=== PATIENT | female | born 1955 | race Caucasian/White ===

== ENCOUNTER 2022-06-28 17:41 | Inpatient (IN) | payer MEDICARE ==
[~2022-06-28] VITALS: Ht 165.1 cm; Wt 113.6 kg
[2022-06-28 19:47] LABS: BASOPHILS % (AUTO) 0.1 % (0-1); EOSINOPHILS # (AUTO) 0.1 X10'3 (0-0.9); EOSINOPHILS % (AUTO) 0.5 % (0-6); HEMATOCRIT 30.7 % (35.0-45.0); HEMOGLOBIN 10.3 g/dl (12.0-16.0); LYMPHOCYTES # (AUTO) 1.8 X10'3 (1.1-4.8); LYMPHOCYTES % (AUTO) 11.1 % (21-51); MEAN CORPUSCULAR HGB CONC 33.5 g/dL (33.0-36.5); MEAN CORPUSCULAR VOLUME 80.6 FL (78-98); MEAN PLATELET VOLUME 8.6 FL (7.4-10.4); MONOCYTES # (AUTO) 1.6 X10'3 (0-0.9); MONOCYTES % (AUTO) 9.6 % (2-12); NEUTROPHILS # (AUTO) 12.8 X10'3 (1.8-7.7); NEUTROPHILS % (AUTO) 78.7 % (42-75); PLATELET COUNT 445 X10'3 (140-440); RED CELL DISTRIBUTION WIDTH 28.5 % (11.5-14.5); WHITE BLOOD COUNT 16.3 X10'3 (4.5-11.0)
[2022-06-28 20:15] LABS: COLOR,URINE ORANGE (Yellow); UA COLLECTION TYPE STRAIGHT CATH
[2022-06-28 20:16] LABS: CLARITY,URINE SLIGHTLY CLOUDY (Clear)
[2022-06-28 20:17] LABS: URINE AMPHETAMINE SCREEN NEGATIVE (Neg); URINE BARBITUATE SCREEN NEGATIVE (Neg); URINE BENZODIAZEPINES SCREEN POSITIVE (Neg); URINE CANNABINOID SCREEN NEGATIVE (Neg); URINE COCAINE SCREEN NEGATIVE (Neg); URINE METHADONE SCREEN NEGATIVE (Neg); URINE OPIATE SCREEN NEGATIVE (Neg); URINE PHENCYCLIDINE SCREEN NEGATIVE (Neg)
[2022-06-28 20:18] LABS: BACTERIA,URINE 2+ /HPF (Neg); RBC,URINE NONE SEEN /HPF (0-2); SQUAMOUS EPITHELIAL CELL,UR MANY /LPF (FEW); WBC,URINE 0-4 /HPF (0-4)
[2022-06-28 20:19] LABS: ALANINE AMINOTRANSFERASE 17 U/L (12-78); ALBUMIN 2.5 G/DL (3.4-5.0); ALKALINE PHOSPHATASE 373 IU/L (46-116); ANION GAP 13 (8-16); BLOOD UREA NITROGEN 28 MG/DL (7-18); BUN/CREATININE RATIO 16.8 (6.6-38.0); CALCIUM 10.5 MG/DL (8.5-10.1); CHLORIDE 99 MMOL/L (99-107); CREATININE 1.67 MG/DL (0.40-0.90); LIPASE 66 U/L (73-393); SODIUM 137 MMOL/L (135-145); TOTAL CARBON DIOXIDE 25.5 MMOL/L (24-32); eGFR 31 ML/MIN
[2022-06-28 20:21] LABS: ETHANOL < 0.010 GM/DL (0.0-0.010)
[2022-06-28 20:30] LABS: ANISOCYTOSIS 3+; PLATELET ESTIMATE INCREASED; POIKILOCYTOSIS 2+
[2022-06-28 20:31] LABS: HYPOCHROMASIA 3+; POLYCHROMASIA 1+; SCHISTOCYTES 1+; TARGET CELLS 3+
[2022-06-28 20:35] LABS: ALBUMIN/GLOBULIN RATIO 0.6 (1.1-1.5); BILIRUBIN,DIRECT 22.7 MG/DL (0-0.3); BILIRUBIN,TOTAL 32.6 MG/DL (0.1-1.0); GLUCOSE 92 MG/DL (70-104); POTASSIUM 3.1 MMOL/L (3.5-5.1); TOTAL PROTEIN 6.6 G/DL (6.4-8.2)
[2022-06-28 20:38] LABS: ASPARTATE AMINO TRANSFERASE 67 U/L (10-37)
[2022-06-28] MEDS ORDERED: piperacillin/tazo 3.375gm/50ml 50 ML IV STA (21:08)
[2022-06-28] MEDS ORDERED: potassium Cl 20 mEq SR tablet PO ONE (21:10)
[2022-06-29] MEDS ORDERED: magnesium Cl slow-release 64mg tablet PO PRN (00:25)
[2022-06-29] MEDS ORDERED: diphenhydrAMINE 25mg capsule PO PRN (00:25)
[2022-06-29] MEDS ORDERED: haloperidol 5mg tablet PO PRN (00:25)
[2022-06-29] MEDS ORDERED: ondansetron/PF 4mg/2ml inj IV PRN (00:25)
[2022-06-29] MEDS ORDERED: magnesium hydroxide 30ml (MOM) UD suspension PO PRN (00:25)
[2022-06-29] MEDS ORDERED: LORazepam 2 mg/ml vial IV PRN (00:25)
[2022-06-29] MEDS ORDERED: haloperidol lactate 5mg/ml inj IM PRN (00:25)
[2022-06-29] MEDS ORDERED: HYDROcodone/acetaminophen 5mg/325mg tablet PO PRN (00:25)
[2022-06-29] MEDS ORDERED: potassium CL 10mEq/100ml bag 100 ML IV PRN (00:25)
[2022-06-29] MEDS ORDERED: bisacodyl 10mg suppository rectal RC PRN (00:25)
[2022-06-29] MEDS ORDERED: mag hydrox/Alum hydrox/simeth 30ml oral suspension PO PRN (00:25)
[2022-06-29] MEDS ORDERED: POTASSIUM BICARB 20meq eff tab 20 MEQ TABLET.EFF PO PRN (00:25)
[2022-06-29] MEDS ORDERED: ondansetron 4mg rapidly disintigrating tab PO PRN (00:25)
[2022-06-29] MEDS ORDERED: LORazepam 1 MG tablet PO PRN (00:25)
[2022-06-29] MEDS ORDERED: magnesium 2GM in 50ml NS 50 ML IV PRN (00:25)
[2022-06-29] MEDS ORDERED: HYDROcodone/acetaminophen 10/325mg tab PO PRN (00:25)
[2022-06-29] MEDS ORDERED: magnesium 4gm in 100ml NS 100 ML IV PRN (00:25)
[2022-06-29] MEDS ORDERED: diphenhydrAMINE 50 mg/ml inj IV PRN (00:25)
[2022-06-29] MEDS ORDERED: acetaminophen 650mg rectal suppository RC PRN (00:25)
[2022-06-29] MEDS ORDERED: acetaminophen 325mg tablet PO PRN ×2 (00:25)
[2022-06-29] MEDS: normal saline 1000ml 1,000 ML IV SCH ×4 (00:46→20:41)
[2022-06-29 00:55] LABS: HEMOGLOBIN A1C 4.3 % (4.5-6.2)
[2022-06-29 01:11] LABS: CREATINE KINASE 28 U/L (26-192); MAGNESIUM 1.7 MG/DL (1.5-2.4); PHOSPHORUS 2.8 MG/DL (2.3-4.5)
[2022-06-29] MEDS ORDERED: HYDROcodone/acetaminophen 10/325mg tab PO ONE (01:25)
[2022-06-29] MEDS ORDERED: NO HOME MEDS (03:26)
--- NOTE | 2022-06-29 04:51 | NUR ---
Pt is in room asleep.
[2022-06-29 07:59] LABS: APTT 32 SECONDS (22-32); RED BLOOD COUNT 3.45 X10'6 (4.20-5.60); RETICULOCYTE % (AUTO) 2.7 % (0.5-1.5)
[2022-06-29] MEDS: K and/or MAG REPLACEMENT MC SCH ×2 (08:00→20:00)
[2022-06-29] MEDS: docusate sod 100mg capsule PO SCH ×2 (08:00→20:00)
[2022-06-29] MEDS: pantoprazole 40MG/NS 100ML BAG 100 ML IV SCH (08:40)
[2022-06-29] MEDS: thiamine 100mg/ml 2ml inj. IV SCH ×3 (08:47→20:45)
[2022-06-29] MEDS: piperacillin/tazo 4.5gm/100ml 100 ML IV SCH (09:54)
[2022-06-29] MEDS: folic acid 1mg/0.2ml inj IV SCH (10:15)
[2022-06-29] MEDS: POTASSIUM BICARB 20meq eff tab 20 MEQ TABLET.EFF PO PRN ×3 (11:28→20:54)
[2022-06-29] MEDS: morphine 2 MG/ML inj. syringe IV PRN ×3 (11:48→20:52)
--- NOTE | 2022-06-29 14:04 | NUR ---
Report given to SHAVONNE Larkin on PCU
[2022-06-29 15:00] VITALS: BP 120/62
[2022-06-29 18:00] VITALS: BP 115/66
--- NOTE | 2022-06-29 18:59 | NUR ---
Problems reprioritized. Patient report given, questions answered & plan of care reviewed with Hyacinth Claros RN.
--- NOTE | 2022-06-29 19:00 | NUR ---
Patient in room PCU 3027. I have received report from KATELYNN MARVIN and had the opportunity to ask questions and assume patient care.
[2022-06-29] MEDS ORDERED: temazepam 15mg capsule PO PRN (21:00)
[2022-06-29 22:00] VITALS: BP 122/65
[2022-06-30 02:00] VITALS: BP_SYST 122; BP_SYST 128; BP_DIAS 65; BP_DIAS 72
[2022-06-30 06:00] VITALS: BP 117/66
--- NOTE | 2022-06-30 06:28 | NUR ---
Problems reprioritized. Patient report given, questions answered & plan of care reviewed with TIMBO MARVIN.
--- NOTE | 2022-06-30 06:30 | NUR ---
Patient in room PCU 3027. I have received report from SHAVONNE Lamas and had the opportunity to ask questions and assume patient care.
[2022-06-30 06:49] LABS: BASOPHILS # (AUTO) 0.1 X10'3 (0-0.2); BASOPHILS % (AUTO) 0.4 % (0-1); EOSINOPHILS # (AUTO) 0.1 X10'3 (0-0.9); EOSINOPHILS % (AUTO) 0.9 % (0-6); HEMATOCRIT 26.2 % (35.0-45.0); HEMOGLOBIN 8.8 g/dl (12.0-16.0); LYMPHOCYTES # (AUTO) 0.8 X10'3 (1.1-4.8); LYMPHOCYTES % (AUTO) 6.3 % (21-51); MEAN CORPUSCULAR HEMOGLOBIN 27.6 PG (27.0-31.0); MEAN CORPUSCULAR HGB CONC 33.6 g/dL (33.0-36.5); MEAN CORPUSCULAR VOLUME 81.9 FL (78-98); MEAN PLATELET VOLUME 7.8 FL (7.4-10.4); MONOCYTES # (AUTO) 1.3 X10'3 (0-0.9); MONOCYTES % (AUTO) 10.2 % (2-12); NEUTROPHILS # (AUTO) 10.6 X10'3 (1.8-7.7); NEUTROPHILS % (AUTO) 82.2 % (42-75); PLATELET COUNT 313 X10'3 (140-440); RED CELL DISTRIBUTION WIDTH 28.1 % (11.5-14.5); WHITE BLOOD COUNT 12.9 X10'3 (4.5-11.0)
[2022-06-30 07:32] LABS: ALANINE AMINOTRANSFERASE 14 U/L (12-78); ALBUMIN 2.1 G/DL (3.4-5.0); ALKALINE PHOSPHATASE 314 IU/L (46-116); ANION GAP 14 (8-16); BLOOD UREA NITROGEN 33 MG/DL (7-18); CALCIUM 9.2 MG/DL (8.5-10.1); CHLORIDE 101 MMOL/L (99-107); HDL CHOLESTEROL 10 MG/DL (35-60); LDL CHOLESTEROL 30 MG/DL (50-100); SODIUM 137 MMOL/L (135-145); TOTAL CARBON DIOXIDE 22.4 MMOL/L (24-32)
[2022-06-30 07:35] LABS: ALBUMIN/GLOBULIN RATIO 0.6 (1.1-1.5); ASPARTATE AMINO TRANSFERASE 67 U/L (10-37); BILIRUBIN,TOTAL 29.5 MG/DL (0.1-1.0); BUN/CREATININE RATIO 14.2 (6.6-38.0); CHOLESTEROL < 50 MG/DL (0-200); CREATININE 2.32 MG/DL (0.40-0.90); GLUCOSE 105 MG/DL (70-104); TOTAL PROTEIN 5.6 G/DL (6.4-8.2); TRIGLYCERIDES 161 MG/DL (20-135); eGFR 21 ML/MIN
[2022-06-30] MEDS: K and/or MAG REPLACEMENT MC SCH ×2 (08:00→20:00)
[2022-06-30] MEDS: normal saline 1000ml 1,000 ML IV SCH ×2 (08:32→19:25)
[2022-06-30] MEDS: piperacillin/tazo 4.5gm/100ml 100 ML IV SCH (08:32)
[2022-06-30] MEDS: thiamine 100mg/ml 2ml inj. IV SCH ×3 (08:34→20:24)
[2022-06-30] MEDS: pantoprazole 40MG/NS 100ML BAG 100 ML IV SCH (08:37)
[2022-06-30] MEDS: docusate sod 100mg capsule PO SCH ×2 (08:37→20:24)
[2022-06-30] MEDS: folic acid 1mg/0.2ml inj IV SCH (10:58)
[2022-06-30] MEDS: morphine 2 MG/ML inj. syringe IV PRN ×2 (12:50→17:01)
--- NOTE | 2022-06-30 18:23 | NUR ---
Problems reprioritized. Patient report given, questions answered & plan of care reviewed with SHAVONNE Juarez.
[2022-06-30 19:15] VITALS: BP 121/91
[2022-07-01] MEDS: normal saline 1000ml 1,000 ML IV SCH (06:00)
--- NOTE | 2022-07-01 06:53 | NUR ---
Patient in room PCU 3027. I have received report from Anam MARVIN and had the opportunity to ask questions and assume patient care.
--- NOTE | 2022-07-01 06:55 | NUR ---
Problems reprioritized. Patient report given, questions answered & plan of care reviewed with GENEVIEVE. Addendum: 07/01/22 at 0656 by Art Jacobson RN Amended: Links added.
[2022-07-01 07:00] VITALS: BP 121/61
[2022-07-01] MEDS: thiamine 100mg/ml 2ml inj. IV SCH (07:57)
[2022-07-01] MEDS: docusate sod 100mg capsule PO SCH (07:57)
[2022-07-01] MEDS: pantoprazole 40MG/NS 100ML BAG 100 ML IV SCH (07:57)
[2022-07-01] MEDS: K and/or MAG REPLACEMENT MC SCH (08:00)
[2022-07-01 08:20] LABS: BASOPHILS % (AUTO) 0.3 % (0-1); EOSINOPHILS # (AUTO) 0.1 X10'3 (0-0.9); EOSINOPHILS % (AUTO) 0.9 % (0-6); HEMATOCRIT 26.5 % (35.0-45.0); HEMOGLOBIN 8.8 g/dl (12.0-16.0); LYMPHOCYTES # (AUTO) 0.7 X10'3 (1.1-4.8); LYMPHOCYTES % (AUTO) 5.4 % (21-51); MEAN CORPUSCULAR HEMOGLOBIN 27.2 PG (27.0-31.0); MEAN CORPUSCULAR HGB CONC 33.1 g/dL (33.0-36.5); MEAN CORPUSCULAR VOLUME 82.3 FL (78-98); MEAN PLATELET VOLUME 8.3 FL (7.4-10.4); MONOCYTES # (AUTO) 1.1 X10'3 (0-0.9); MONOCYTES % (AUTO) 8.2 % (2-12); NEUTROPHILS # (AUTO) 11.3 X10'3 (1.8-7.7); NEUTROPHILS % (AUTO) 85.2 % (42-75); PLATELET COUNT 288 X10'3 (140-440); RED BLOOD COUNT 3.22 X10'6 (4.20-5.60); RED CELL DISTRIBUTION WIDTH 27.8 % (11.5-14.5); WHITE BLOOD COUNT 13.2 X10'3 (4.5-11.0)
[2022-07-01 09:10] LABS: ALANINE AMINOTRANSFERASE 15 U/L (12-78); ALBUMIN 1.9 G/DL (3.4-5.0); ALKALINE PHOSPHATASE 317 IU/L (46-116); ANION GAP 13 (8-16); ASPARTATE AMINO TRANSFERASE 68 U/L (10-37); BILIRUBIN,TOTAL 29.6 MG/DL (0.1-1.0); BLOOD UREA NITROGEN 37 MG/DL (7-18); BUN/CREATININE RATIO 13.5 (6.6-38.0); CALCIUM 8.9 MG/DL (8.5-10.1); CHLORIDE 100 MMOL/L (99-107); CREATININE 2.75 MG/DL (0.40-0.90); GLUCOSE 118 MG/DL (70-104); POTASSIUM 3.6 MMOL/L (3.5-5.1); SODIUM 133 MMOL/L (135-145); TOTAL CARBON DIOXIDE 19.7 MMOL/L (24-32); eGFR 17 ML/MIN
[2022-07-01 09:25] LABS: ALBUMIN/GLOBULIN RATIO 0.5 (1.1-1.5); TOTAL PROTEIN 5.5 G/DL (6.4-8.2)
[2022-07-01] MEDS: folic acid 1mg/0.2ml inj IV SCH (09:59)
[2022-07-01 11:00] VITALS: BP 112/63
[2022-07-01] MEDS ORDERED: MULT-1085 PO (11:43)
--- NOTE | 2022-07-01 12:55 | NUR ---
Patient discharge instructions reviewed with patient and patient and daughter at bedside verbalized understanding. Patients IV dc'd x2 both cannulas intact. Caitlyn Tele D Addendum: 07/01/22 at 1351 by Alissa Narayanan RN Discontinued for discharge. Patient getting dressed for discharge. Patient taken to daughters vehicle via wheelchair. Patient and daughter state patient has all her belongings.
[2022-07-03] MEDS ORDERED: thiamine 100mg tablet PO SCH (08:00)
[2022-07-03] MEDS ORDERED: folic acid 1mg tablet PO SCH (08:00)
== END 2022-07-01 12:55 | disposition home or self-care (01) | DRG 441 ==
LOC: ER 17:42 → ED HOLD 06-29 00:32 → PCU 3S 06-29 14:40
PROVIDERS: ADMIT Family Medicine; ATTEND Internal Medicine
DX: K72.00 Acute and subacute hepatic failure without coma (principal); G93.41 Metabolic encephalopathy; K76.7 Hepatorenal syndrome; K83.1 Obstruction of bile duct; N39.0 Urinary tract infection, site not specified; N17.9 Acute kidney failure, unspecified; M48.54XA Collapsed vertebra, not elsewhere classified, thoracic region, initial encounter for fracture; Z68.41 Body mass index [BMI] 40.0-44.9, adult; D63.8 Anemia in other chronic diseases classified elsewhere; E66.01 Morbid (severe) obesity due to excess calories; K57.90 Diverticulosis of intestine, part unspecified, without perforation or abscess without bleeding; R32 Unspecified urinary incontinence; K70.9 Alcoholic liver disease, unspecified; E86.1 Hypovolemia; E87.6 Hypokalemia; F10.20 Alcohol dependence, uncomplicated; K44.9 Diaphragmatic hernia without obstruction or gangrene; K82.8 Other specified diseases of gallbladder; N18.9 Chronic kidney disease, unspecified
CPT/HCPCS: 36415; 70450; 74176; 80053; 80061; 80305; 80320; 81001; 82140; 82248; 82550; 83036; 83690; 83735; 83880; 84100; 84443; 84484; 85008; 85025; 85045; 85610; 85730; 87081; 93005; 97162; 99285; C1758; C9113; G0378; J2270; J2543; J3411; J3490; J7030

== ENCOUNTER 2022-07-06 17:01 | Inpatient (IN) | payer MEDICARE ==
[~2022-07-06] VITALS: Ht 165.1 cm; Wt 113.6 kg
[~2022-07-06 17:01] MED LIST: MULT-1085 PO; NO HOME MEDS
[2022-07-06 18:14] LABS: BASOPHILS % (AUTO) 0.1 % (0-1); EOSINOPHILS # (AUTO) 0.1 X10'3 (0-0.9); EOSINOPHILS % (AUTO) 0.7 % (0-6); HEMATOCRIT 30.2 % (35.0-45.0); LYMPHOCYTES # (AUTO) 0.8 X10'3 (1.1-4.8); LYMPHOCYTES % (AUTO) 4.1 % (21-51); MEAN CORPUSCULAR HEMOGLOBIN 27.2 PG (27.0-31.0); MEAN CORPUSCULAR HGB CONC 33.1 g/dL (33.0-36.5); MEAN CORPUSCULAR VOLUME 82.1 FL (78-98); MEAN PLATELET VOLUME 7.5 FL (7.4-10.4); MONOCYTES # (AUTO) 1.3 X10'3 (0-0.9); MONOCYTES % (AUTO) 6.6 % (2-12); NEUTROPHILS # (AUTO) 17.7 X10'3 (1.8-7.7); NEUTROPHILS % (AUTO) 88.5 % (42-75); PLATELET COUNT 414 X10'3 (140-440); RED BLOOD COUNT 3.68 X10'6 (4.20-5.60); RED CELL DISTRIBUTION WIDTH 28.1 % (11.5-14.5)
[2022-07-06 18:39] LABS: ALANINE AMINOTRANSFERASE 25 U/L (12-78); ALBUMIN 2.1 G/DL (3.4-5.0); ALKALINE PHOSPHATASE 399 IU/L (46-116); ANION GAP 16 (8-16); BLOOD UREA NITROGEN 80 MG/DL (7-18); BUN/CREATININE RATIO 13.6 (6.6-38.0); CHLORIDE 96 MMOL/L (99-107); CREATININE 5.87 MG/DL (0.40-0.90); LIPASE 157 U/L (73-393); SODIUM 132 MMOL/L (135-145); TOTAL CARBON DIOXIDE 19.8 MMOL/L (24-32); eGFR 7 ML/MIN
[2022-07-06 18:57] LABS: ASPARTATE AMINO TRANSFERASE 96 U/L (10-37)
[2022-07-06 18:58] LABS: ALBUMIN/GLOBULIN RATIO 0.5 (1.1-1.5); GLUCOSE 117 MG/DL (70-104)
[2022-07-06 19:01] LABS: BILIRUBIN,TOTAL 36.4 MG/DL (0.1-1.0); POTASSIUM 3.8 MMOL/L (3.5-5.1)
[2022-07-06 19:42] LABS: ANISOCYTOSIS 3+; PLATELET ESTIMATE NORMAL
[2022-07-06 19:43] LABS: BURR CELLS 1+; SCHISTOCYTES 2+; TARGET CELLS 2+
[2022-07-06 19:44] LABS: ELLIPTOCYTES 1+; HYPOCHROMASIA 2+
[2022-07-06] MEDS ORDERED: morphine 2 MG/ML inj. syringe IV ONE (21:00)
[2022-07-06] MEDS ORDERED: ondansetron/PF 4mg/2ml inj IV PRN (21:15)
[2022-07-06] MEDS ORDERED: magnesium Cl slow-release 64mg tablet PO PRN (21:15)
[2022-07-06] MEDS ORDERED: magnesium hydroxide 30ml (MOM) UD suspension PO PRN (21:15)
[2022-07-06] MEDS ORDERED: POTASSIUM BICARB 20meq eff tab 20 MEQ TABLET.EFF PO PRN ×2 (21:15)
[2022-07-06] MEDS ORDERED: magnesium 4gm in 100ml NS 100 ML IV PRN (21:15)
[2022-07-06] MEDS ORDERED: acetaminophen 325mg tablet PO PRN (21:15)
[2022-07-06] MEDS ORDERED: magnesium 2GM in 50ml NS 50 ML IV PRN (21:15)
[2022-07-06] MEDS ORDERED: potassium CL 10mEq/100ml bag 100 ML IV PRN (21:15)
[2022-07-06] MEDS ORDERED: mag hydrox/Alum hydrox/simeth 30ml oral suspension PO PRN (21:15)
[2022-07-06 21:37] LABS: MAGNESIUM 2.5 MG/DL (1.5-2.4)
[2022-07-06 21:39] LABS: CLARITY,URINE Cloudy (Clear); COLOR,URINE ORANGE (Yellow); UA COLLECTION TYPE CLN CATCH MIDSTREAM
[2022-07-06 21:46] LABS: AMORPHOUS PHOSPHATES 2+; BACTERIA,URINE 2+ /HPF (Neg); RBC,URINE 0-2 /HPF (0-2); SQUAMOUS EPITHELIAL CELL,UR MANY /LPF (FEW); WBC,URINE NONE SEEN /HPF (0-4)
[2022-07-07] MEDS ORDERED: furosemide 40mg/4ml inj IV ONE (00:55)
--- NOTE | 2022-07-07 02:05 | NUR ---
Significant other Nuzhat [phone] home or [phone] cell
[2022-07-07 03:39] LABS: BASOPHILS # (AUTO) 0.1 X10'3 (0-0.2); BASOPHILS % (AUTO) 0.4 % (0-1); EOSINOPHILS # (AUTO) 0.1 X10'3 (0-0.9); EOSINOPHILS % (AUTO) 0.7 % (0-6); HEMOGLOBIN 8.7 g/dl (12.0-16.0); LYMPHOCYTES # (AUTO) 0.6 X10'3 (1.1-4.8); LYMPHOCYTES % (AUTO) 3.5 % (21-51); MEAN CORPUSCULAR HEMOGLOBIN 27.6 PG (27.0-31.0); MEAN CORPUSCULAR HGB CONC 33.7 g/dL (33.0-36.5); MEAN CORPUSCULAR VOLUME 81.9 FL (78-98); MEAN PLATELET VOLUME 7.8 FL (7.4-10.4); MONOCYTES # (AUTO) 1.3 X10'3 (0-0.9); MONOCYTES % (AUTO) 7.8 % (2-12); NEUTROPHILS % (AUTO) 87.6 % (42-75); PLATELET COUNT 316 X10'3 (140-440); RED BLOOD COUNT 3.17 X10'6 (4.20-5.60); RED CELL DISTRIBUTION WIDTH 27.8 % (11.5-14.5); WHITE BLOOD COUNT 17.1 X10'3 (4.5-11.0)
[2022-07-07 03:59] LABS: PLATELET ESTIMATE NORMAL
[2022-07-07 04:00] LABS: ANISOCYTOSIS 3+; BURR CELLS 1+; ELLIPTOCYTES 1+; HYPOCHROMASIA 2+; SCHISTOCYTES 2+; TARGET CELLS 2+
[2022-07-07 04:04] LABS: ALANINE AMINOTRANSFERASE 16 U/L (12-78); ALBUMIN 1.8 G/DL (3.4-5.0); ALKALINE PHOSPHATASE 346 IU/L (46-116); AMYLASE 16 U/L (25-115); ANION GAP 14 (8-16); BLOOD UREA NITROGEN 82 MG/DL (7-18); BUN/CREATININE RATIO 14.4 (6.6-38.0); CALCIUM 9.1 MG/DL (8.5-10.1); CHLORIDE 99 MMOL/L (99-107); CREATININE 5.71 MG/DL (0.40-0.90); LIPASE 113 U/L (73-393); MAGNESIUM 2.3 MG/DL (1.5-2.4); SODIUM 132 MMOL/L (135-145); TOTAL CARBON DIOXIDE 18.8 MMOL/L (24-32); eGFR 7 ML/MIN
[2022-07-07 04:30] LABS: ALBUMIN/GLOBULIN RATIO 0.5 (1.1-1.5); ASPARTATE AMINO TRANSFERASE 84 U/L (10-37); TOTAL PROTEIN 5.1 G/DL (6.4-8.2)
[2022-07-07 04:37] LABS: BILIRUBIN,TOTAL 31.1 MG/DL (0.1-1.0); GLUCOSE 100 MG/DL (70-104); PHOSPHORUS 5.4 MG/DL (2.3-4.5); POTASSIUM 4.2 MMOL/L (3.5-5.1)
--- NOTE | 2022-07-07 06:56 | NUR ---
pt sleeping quietly at this time. no acute distress noted.
[2022-07-07] MEDS: K and/or MAG REPLACEMENT MC SCH ×2 (08:00→20:00)
[2022-07-07] MEDS: multivitamins, therapeutics tablet PO SCH (10:34)
[2022-07-07] MEDS: docusate sod 100mg capsule PO SCH ×2 (10:35→19:21)
--- NOTE | 2022-07-07 11:00 | NUR ---
per social service agency director. pt will be going home on hospice. arrangements are being made.
--- NOTE | 2022-07-07 12:10 | NUR ---
Ellie morton in [facility] - 07/07/22 at 1314 by JACK pt in nuclear med
--- NOTE | 2022-07-07 13:24 | NUR ---
di from [facility] called, " US showed no fluid, so nothing to drain. Paracentesis cancelled".
--- NOTE | 2022-07-07 13:26 | NUR ---
Spoke with Barbara MARVIN for patient, not enough fluid for the para to be performed.
--- NOTE | 2022-07-07 13:29 | NUR ---
pt c/o abd pain, put call into dr. walsh for pain med
[2022-07-07] MEDS ORDERED: morphine 2 MG/ML inj. syringe IV PRN (14:50)
[2022-07-07] MEDS: morphine 2 MG/ML inj. syringe IV PRN ×2 (16:00→19:25)
--- NOTE | 2022-07-07 16:06 | NUR ---
INFORMED DR. DAVALOS THAT [facility] CALLED AND TAP HAS BEEN CANCELLED DUE TO US SHOWING NO FLUID.
[2022-07-07 20:00] VITALS: BP 97/51
--- NOTE | 2022-07-07 23:22 | NUR ---
MRSA swab not done. pt on comfort care and going home on hospice in the AM. frq monitoring
[2022-07-08] MEDS: morphine 2 MG/ML inj. syringe IV PRN ×4 (00:11→11:44)
--- NOTE | 2022-07-08 06:32 | NUR ---
Problems reprioritized. Patient report given, questions answered & plan of care reviewed with Winsome MARVIN.
--- NOTE | 2022-07-08 06:50 | NUR ---
Patient in room ORTHO 4022. I have received report from SHAVONNE Cobb and had the opportunity to ask questions and assume patient care.
[2022-07-08] MEDS: multivitamins, therapeutics tablet PO SCH (07:52)
[2022-07-08] MEDS: docusate sod 100mg capsule PO SCH (07:52)
[2022-07-08] MEDS: K and/or MAG REPLACEMENT MC SCH (07:55)
[2022-07-08 10:00] VITALS: BP 92/47
--- NOTE | 2022-07-08 10:39 | NUR ---
Noted pt has been made DNR w/ comfort care per EMR. [facility] 07/06. Will continue to follow. Rec: 1. bowel care per rx Addendum: 07/08/22 at [address] Amended: Links added.
[2022-07-08] MEDS ORDERED: ACET-1008 PO (11:38)
[2022-07-08] MEDS ORDERED: SCOP1PAT11 TOP (11:38)
[2022-07-08] MEDS ORDERED: MORP15TA PO (11:38)
--- NOTE | 2022-07-08 12:48 | NUR ---
Patient was discharged at 1250 with instructions and verbalizing understanding of instructions, in wheelchair accompanied by nursing staff and family going home via private vehicle. All lines and tubes have been removed including PIV with cannula intact and tele monitor. Education about new medication has been provided and all questions have been answered. [facility] is meeting the patient today at her residence. Patient is stable and appropriate for discharge.
== END 2022-07-08 12:50 | disposition hospice, home (50) | DRG 432 ==
LOC: ER 17:01 → ED HOLD 21:18 → ORTHO 4S 07-07 19:00
PROVIDERS: ADMIT Internal Medicine; ATTEND Family Medicine
DX: K70.31 Alcoholic cirrhosis of liver with ascites (principal); K76.7 Hepatorenal syndrome; N17.9 Acute kidney failure, unspecified; K70.11 Alcoholic hepatitis with ascites; D64.9 Anemia, unspecified; D72.829 Elevated white blood cell count, unspecified; Z66 Do not resuscitate; F10.20 Alcohol dependence, uncomplicated; M54.9 Dorsalgia, unspecified; G89.29 Other chronic pain; K72.10 Chronic hepatic failure without coma; Z51.5 Encounter for palliative care; Z90.710 Acquired absence of both cervix and uterus; Z79.899 Other long term (current) drug therapy
CPT/HCPCS: 36415; 71045; 76705; 80053; 81001; 82150; 83690; 83735; 83880; 84100; 85008; 85025; 85610; 99285; G0378; J1940; J2270